=== PATIENT | female | born 1960 | race Caucasian/White ===

== ENCOUNTER 2018-06-17 08:03 | Day surgery (SDC) | payer OTHER ==
[~2018-06-17 08:03] MED LIST: LIDOCAINE 2% (SDV) 5 ML INJ
[2018-06-17] MEDS ORDERED: MEPERIDINE 25 MG INJ IV (08:30)
[2018-06-17] MEDS ORDERED: METOCLOPRAMIDE 10 MG INJ IV (08:30)
[2018-06-17] MEDS ORDERED: FENTAnyl 50 MCG/ML VIAL IV ×2 (08:30)
[2018-06-17] MEDS ORDERED: DIPHENHYDRAMINE 50 MG INJ IV (08:30)
[2018-06-17 09:49] LABS: INR 0.91; PROTIME 12.3 Sec (11.9-14.9)
[2018-06-17 09:50] LABS: PARTIAL THROMBOPLASTIN TIME 33.3 Sec (25.0-35.0)
[2018-06-17] MEDS ORDERED: PROPOFOL 20 ML (10:10)
[2018-06-17] MEDS ORDERED: ROCURONIUM 50 MG INJ (10:10)
[2018-06-17] MEDS ORDERED: SUCCINYLCHOLINE CHLORIDE 100 MG/5 ML SYG IV (10:10)
[2018-06-17] MEDS ORDERED: CEFAZOLIN 1 GM INJ (10:10)
[2018-06-17] MEDS ORDERED: SUGAMMADEX SODIUM 200 MG/2 ML VIAL IV (10:11)
[2018-06-17] MEDS ORDERED: FENTAnyl 50 MCG/ML VIAL (10:11)
[2018-06-17] MEDS: ONDANSETRON 4 MG INJ IV (11:10)
[2018-06-17] MEDS: HYDROmorphONE 1 MG/5 ML IV SYRINGE IV ×3 (11:10→11:21)
[2018-06-17] MEDS ORDERED: HYDROmorphONE 0.5 MG/0.5 ML SYG IV (13:00)
[2018-06-17] MEDS ORDERED: HYDROmorphONE 1 MG/ML SYG IV (13:00)
[2018-06-17] MEDS: HYDROCODONE/APAP (7.5/325) TAB PO (13:43)
== END 2018-06-17 14:34 | disposition home or self-care (01) ==
LOC: SDS 08:03
DX: C44.509 Unspecified malignant neoplasm of skin of other part of trunk (principal); I10 Essential (primary) hypertension
CPT/HCPCS: 14000; 71045; 85610; 85730; 88307; 88331; 88341; 88342; 93005